=== PATIENT | female | born 1990 | race American Indian/Alaskan Native ===

== ENCOUNTER 2018-10-01 15:31 | Emergency (ER) | payer OTHER, SELFPAY ==
[2018-10-01 15:32] VITALS: BP 152/88; PULSE 95; RESP 20; TEMP 37.2; O2SAT 98; BMI 47.5
--- NOTE | 2018-10-01 16:23 | ED.URI ---
HPI - URI/Sore Throat <Kady Huerta PA-C - Last Filed: 10/01/18 22:04> General Chief Complaint: Upper Respiratory Symptoms Stated Complaint: thinks she has strep throat Time Seen by Provider: 10/01/18 15:56 Source: patient Mode of arrival: ambulatory Limitations: no limitations History of Present Illness HPI Narrative: This 28-year-old female complains of onset of sore throat 3 days ago, which has been worsening, harder to swallow. She states that she had fever of 101 prior to arrival and has also had headache and sinus pressure. She states that she feels tired and achy all over. She has some right earache. She denies nasal congestion, cough, wheeze, dyspnea or other new complaints. She states she has had some sick contacts at home, no specific illness, no recent travel Related Data Previous Rx's Medication Instructions Recorded amoxicillin 500 mg PO Q8H #30 cap 10/01/18 Review of Systems <Kady Huerta PA-C - Last Filed: 10/01/18 22:04> Review of Systems All systems reviewed & are unremarkable except as noted in HPI and below Exam <Kady Huerta PA-C - Last Filed: 10/01/18 22:04> Narrative Exam Narrative: GENERAL APPEARANCE: Patient sitting comfortably, in no distress. HEAD: Mild frontal tenderness EYES: PERRL, EOMI. EARS: Normal auditory canals, TMS intact, mild erythema on the left, right is erythematous and retracted ORAL CAVITY: Normal oropharynx. THROAT: Erythematous with some exudate on the left side NECK/THYROID: Neck supple, full range of motion, shotty tender anterior cervical nodes LUNGS: Clear to auscultation bilaterally, no cough on exam. HEART: RRR without murmur, nl S1, S2, no S3 or S4. DERMATOLOGIC: No exanthem Initial Vital Signs Initial Vital Signs: Vital Signs Temperature 99.0 F 10/01/18 15:32 Pulse Rate 95 H 10/01/18 15:32 Respiratory Rate 20 10/01/18 15:32 Blood Pressure 152/88 H 10/01/18 15:32 Pulse Oximetry 98 10/01/18 15:32 <Joanne Perez MD - Last Filed: 10/02/18 08:04> Initial Vital Signs Initial Vital Signs: Vital Signs Temperature 99.0 F 10/01/18 15:32 Pulse Rate 95 H 10/01/18 15:32 Respiratory Rate 20 10/01/18 15:32 Blood Pressure 152/88 H 10/01/18 15:32 Pulse Oximetry 98 10/01/18 15:32 Course <Kady Huerta PA-C - Last Filed: 10/01/18 22:04> Orders Ordered: Discontinued Medications Lidocaine HCl (Viscous Lidocaine 2%) 15 ml PO NOW ONE Stop: 10/01/18 16:36 Last Admin: 10/01/18 16:36 Dose: 15 ml Vital Signs - 8 hr 10/01/18 15:32 10/01/18 17:14 Temperature 99.0 F Pulse Rate 95 H 100 H Respiratory Rate 20 20 Blood Pressure 152/88 H 130/83 Pulse Oximetry 98 100 <Joanne Perez MD - Last Filed: 10/02/18 08:04> Orders Ordered: Discontinued Medications Lidocaine HCl (Viscous Lidocaine 2%) 15 ml PO NOW ONE Stop: 10/01/18 16:36 Last Admin: 10/01/18 16:36 Dose: 15 ml Vital Signs - 8 hr 10/01/18 15:32 10/01/18 17:14 Temperature 99.0 F Pulse Rate 95 H 100 H Respiratory Rate 20 20 Blood Pressure 152/88 H 130/83 Pulse Oximetry 98 100 MDM - URI/Sore Throat <Kady Huerta PA-C - Last Filed: 10/01/18 22:04> Lab Data Attestation: I reviewed the patient's lab results. Point of Care Testing Rapid Strep A Positive <Joanne Perez MD - Last Filed: 10/02/18 08:04> Lab Data Point of Care Testing Rapid Strep A Positive Discharge Plan Departure Patient Disposition: Home Clinical Impression: Strep throat, Otitis Discharge Date/Time: 10/01/18 17:16 Interventions: ED Discharge Assessment Last Done: 10/01/18 17:14 Instructions: DI for Strep Throat Activity Restrictions/Additional Instructions: Please return as we talked about if you have acutely worsening symptoms such as difficulty breathing or managing your saliva. Start the antibiotic as soon as you pick it up. Please rest and try to avoid exposure to others/work until your on antibiotic for a couple of days. You can use [id number] throat sprays or lozenges such as Cepacol to help with pain. Also take over the counter Ibuprofen or Aleve to help with pain and fever, and you can add Tylenol as needed. I have increased your antibiotic as it looks like you could have the start of a right ear infection as well. You should follow up with your PCP if you are not feeling better in the next 2-3 days. Prescriptions: New amoxicillin 500 mg capsule 500 mg PO Q8H Qty: 30 RF: 0 Referrals: Fatuma Campos MD [Non-Staff] -
[2018-10-01] MEDS: LIDOCAINE VISCOUS 2% 15 ML SOLUTION PO (16:36)
[2018-10-01 17:14] VITALS: BP 130/83; PULSE 100; RESP 20; O2SAT 100
== END 2018-10-01 17:16 | disposition home or self-care (01) ==
PROVIDERS: Emergency Provider Internal Medicine
DX: J02.0 Streptococcal pharyngitis (principal); H66.90 Otitis media, unspecified, unspecified ear
CPT/HCPCS: 87880; 99282; 99283